=== PATIENT | female | born 2000 | race Caucasian/White ===

== ENCOUNTER 2018-11-14 05:22 | Emergency (ER) | payer SELFPAY ==
[~2018-11-14] VITALS: Ht 167.6 cm; Wt 59.0 kg
[2018-11-14 05:37] VITALS: BP 121/81
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
[2018-11-14 05:47] VITALS: BP 119/83
== END 2018-11-14 05:47 ==
LOC: EMR 05:36
DX: Z02.89 Encounter for other administrative examinations (principal); M54.2 Cervicalgia; F17.200 Nicotine dependence, unspecified, uncomplicated; F41.9 Anxiety disorder, unspecified; S00.12XA Contusion of left eyelid and periocular area, initial encounter; Y04.0XXA Assault by unarmed brawl or fight, initial encounter; Y92.89 Other specified places as the place of occurrence of the external cause
CPT/HCPCS: 99282